=== PATIENT | female | born 1930 | race Caucasian/White ===

== ENCOUNTER → 2016-08-11 | Emergency (ER) | payer OTHER ==
[~2016-08-11] MED LIST: ASPIRIN PO STA
--- NOTE | 2016-08-11 02:05 | EKG Report ---
Test Performed on : 08/11/2016 01:52:42 AM Test Reason : CHEST PAIN Blood Pressure : / mmHG Vent. Rate : 069 BPM Atrial Rate : 069 BPM P-R Int : 148 ms QRS Dur : 098 ms QT Int : 410 ms P-R-T Axes : 045 -57 039 degrees QTc Int : 439 ms Normal sinus rhythm. Left anterior fascicular block Abnormal ECG No previous ECGs available Unconfirmed Result
--- NOTE | 2016-08-11 02:15 | PROVIDER DOCUMENTATION ---
HPI-Chest Pain - General Chief Complaint: Chest Pain Stated Complaint: Chest pain Time Seen by Provider: 08/11/16 02:15 Source: patient Allergies/Adverse Reactions: Patient Allergies Allergy/AdvReac Type Severity Reaction Status Date / Time codeine Allergy Unknown Verified 08/11/16 02:04 meloxicam [From Mobic] Allergy Unknown Verified 08/11/16 02:05 Penicillins Allergy Unknown Verified 08/11/16 02:05 Sulfa (Sulfonamide Allergy Unknown Verified 08/11/16 02:05 Antibiotics) Home Medications: Home Medication List Medication Instructions Recorded Confirmed Last Taken Type Aripiprazole [Abilify] 1 tab PO DAILY 08/11/16 08/11/16 Unknown History Aspirin [Ecotrin] 1 tab PO DAILY 08/11/16 08/11/16 Unknown History Buspirone [Buspar] 1 tab PO BID 08/11/16 08/11/16 Unknown History Dextran 70/Hypromellose 1 drop BOTH EYES 4XDAY 08/11/16 08/11/16 Unknown History [Artificial Tears] Fentanyl 12 Microgm/Hr Patch 1 patch TOP Q72H 08/11/16 08/11/16 Unknown History [Duragesic 12 Microgm/Hr Patch] Lorazepam [Ativan] 1 tab PO Q4H PRN 08/11/16 08/11/16 Unknown History Melatonin/Pyridoxine [Melatonin 3 1 tab PO HS 08/11/16 08/11/16 Unknown History mg Tablet] Memantine HCl/Donepezil HCl 1 tab PO HS 08/11/16 08/11/16 Unknown History [Namzaric 28 mg-10 mg Capsule] - History of Present Illness-CP Nature of Presenting Problem: 85 YOWF PRESENTS TO ED WITH C/O PER EMS, PT WAS ASK AT THE [facility] IF SHE WAS HAVING CHEST PAIN, AND PT NODDED YES. Review of Systems - Adult - REVIEW OF SYSTEMS - ADULT Constitutional: denies: chills, fever Eyes: reports: no symptoms reported Ears, Nose, Mouth & Throat: reports: no symptoms reported Cardiovascular: reports: chest pain. denies: palpitations, syncope Respiratory: denies: cough, shortness of breath, wheezing Gastrointestinal: denies: nausea, vomiting Genitourinary: reports: no symptoms reported Musculoskeletal: denies: back pain, neck pain Integumentary: reports: no symptoms reported Neurological: denies: dizziness/vertigo, headache/migraines, syncope Psychiatric: reports: no symptoms reported Endocrine: reports: no symptoms reported Hematologic/Lymphatic: reports: no symptoms reported Allergic/Immunologic: reports: no symptoms reported All Other Systems: Reviewed and Negative Past History - Adult - PAST MEDICAL HISTORY-ADULT Review of Records: reports: Nursing Assessment Review, Medications Reviewed Neurological: reports: CVA Endocrine/Immune: reports: thyroid disorder Physical Exam-General - CONSTITUTIONAL General Appearance: alert, lethargic - EYES Eyes: PERRL/EOMI, pink conjunctivae - HEAD, EARS, NOSE, MOUTH & THROAT HENMT: normocephalic/atraumatic, moist mucous membranes - NECK Neck: non-tender, full range of motion, supple - RESPIRATORY Respiratory: chest non-tender, lungs clear, normal breath sounds - CARDIOVASCULAR Cardiovascular: normal peripheral pulses, regular rate, rhythm - GASTROINTESTINAL (ABDOMEN) Abdominal Exam: normal bowel sounds, non tender, soft - LYMPHATIC Lymphatic: no adenopathy - MUSCULOSKELETAL Back Exam: normal inspection, no CVA tenderness, no vertebral tenderness Extremity: normal range of motion, non-tender - SKIN Integumentary: normal color, normal turgor, warm/dry - NEUROLOGIC Neurologic: grossly normal, aphasia Progress - EKG 1 Time of EKG reading by physician:: 01:53 EKG Read and Signed by:: Alex Phillips EKG Interpretation (*Must complete 3 of following elements*): Abnormal Rate: 69 Rhythm: NSR [place]: normal QRS: normal [place] Interval: normal Comments: LEFT FASCICULAR BLOCK Departure - Departure Time of Disposition Order: 04:13 DIAGNOSIS: Chest wall pain Disposition: HOME 01 Certified Medical Emergency: Emergent Condition: Stable Additional Instructions: ED Follow Up Instructions: You have been treated by a care provider in the Emergency Department. These instructions are being provided to you so you can have an understanding of how to care for yourself upon discharge. Upon discharge from the Emergency Department, you are responsible for making arrangements for follow-up care by a physician of your choice. Take all prescribed medications as directed. Return to the Emergency Department immediately for any new or worsening symptoms. You may call the Physician Referral phone number at [phone] to obtain a list of Physicians who are taking new patients. Referrals: Tito Taylor [Primary Care Provider] - Forms: Return to School/Parent Work Instructions: Chest Wall Pain, Fyad-[id number] Attestation - Scribe Verification/Attestation Scribe:: Alberto Quispe Acting as Scribe for:: Alex Phillips Scribe documention review:: This chart was documented by a scribe and accurately reflects the service the provider performed and the decisions made by the provider.
[2016-08-11 02:18] LABS: MANUAL DIFF NEEDED? NO
[2016-08-11 02:21] LABS: BASO% 0.9 % (0.0-0.8); EOS# 0.25 X1000 (0.0-0.7); EOS% 4.3 % (0.0-10.0); HEMATOCRIT 46.5 % (37.0-47.0); HEMOGLOBIN 15.1 g/dL (12.0-16.0); IMM GRAN# 0.03 X1000 (0.0-0.04); IMM GRAN% 0.5 % (0.0-0.5); LYMPH# 1.41 X1000 (1.2-3.4); LYMPH% 24.4 % (20.5-51.1); MCH 32.3 PG (27-31); MCHC 32.5 g/dL (33-37); MCV 99.4 FL (81-99); MONO# 0.51 X1000 (0.11-0.59); MONO% 8.8 % (1.7-9.3); MPV 11.1 FL (7.4-10.4); NEUT% 61.1 % (42.2-75.2); PLT 249 X1000 (130-400); RBC 4.68 XMIL (4.2-5.4)
[2016-08-11 02:36] LABS: INR 0.9 (0.86-1.15); PROTIME 12.5 Seconds (12.1-15.5)
[2016-08-11 02:37] LABS: PTT PL 28.6 Seconds (22.6-43.9)
[2016-08-11 02:51] LABS: ALBUMIN 4.2 g/dL (3.5-5.0); CALCIUM 10.5 mg/dL (8.8-10.2); MAGNESIUM 2.4 mg/dL (1.5-2.7); POTASSIUM 4.2 mmol/L (3.5-5.1); TOTAL BILIRUBIN 0.4 mg/dL (0.20-1.00); TOTAL PROTEIN 7.5 g/dL (6.3-8.3)
--- NOTE | 2016-08-11 04:09 | EKG Report ---
Test Performed on : 08/11/2016 04:02:00 AM Test Reason : chest pain Blood Pressure : / mmHG Vent. Rate : 078 BPM Atrial Rate : 078 BPM P-R Int : 156 ms QRS Dur : 094 ms QT Int : 406 ms P-R-T Axes : 037 -57 032 degrees QTc Int : 462 ms Normal sinus rhythm. Left anterior fascicular block Minimal voltage criteria for LVH, may be normal variant Abnormal ECG When compared with ECG of 11-AUG-2016 01:52, (Unconfirmed) No significant change was found Unconfirmed Result
[2016-08-11 05:16] VITALS: BP 110/58
--- NOTE | 2016-08-11 11:29 | Diag Imaging Result Document ---
PROCEDURE NAME: CHEST-2 VIEWS - 08/11/2016 CHEST, 2 VIEWS: COMPARISON: No comparison exam. FINDINGS: Heart size is within normal limits. There is mild tortuosity of the thoracic aorta. There are calcified granulomas and calcified hilar lymph nodes from old granulomatous disease on the left. The lungs, otherwise, appear clear. There is no pleural effusion or pneumothorax identified. IMPRESSION: No evidence of acute disease.
== END | disposition home or self-care (01) ==
LOC: P.ED 01:53
DX: R07.89 Other chest pain (principal); R94.31 Abnormal electrocardiogram [ECG] [EKG]; R53.83 Other fatigue; Z79.82 Long term (current) use of aspirin; Z79.899 Other long term (current) drug therapy; Z86.73 Personal history of transient ischemic attack (TIA), and cerebral infarction without residual deficits
CPT/HCPCS: 71020; 80053; 82550; 83735; 83880; 84484; 85025; 85610; 85730; 93005; 99284